=== PATIENT | female | born 1985 ===

== ENCOUNTER 2024-07-16 11:33 | Outpatient (CLI) | payer OTHER | END 2024-07-16 11:34 | disposition home or self-care (01) | LOC: PRENATAL 11:33 | PROVIDERS: ATTEND Obstetrics & Gynecology Maternal & Fetal Medicine | DX: O44.00 Complete placenta previa NOS or without hemorrhage, unspecified trimester (principal); O09.519 Supervision of elderly primigravida, unspecified trimester; Z3A.22 22 weeks gestation of pregnancy ==

== ENCOUNTER → 2024-09-30 13:57 | Outpatient (CLI) | payer OTHER | END | disposition home or self-care (01) | LOC: PRENATAL 13:57 | PROVIDERS: ATTEND Obstetrics & Gynecology Maternal & Fetal Medicine | DX: O26.849 Uterine size-date discrepancy, unspecified trimester (principal); O36.8199 Decreased fetal movements, unspecified trimester, other fetus; O09.519 Supervision of elderly primigravida, unspecified trimester; Z3A.34 34 weeks gestation of pregnancy ==